=== PATIENT | female | born 1975 | race Caucasian/White ===

== ENCOUNTER → 2017-02-24 | Outpatient (REF) | payer OTHER ==
[~2017-02-24] MED LIST: BUPR150T3; CIPR-249 PO; PANT40TA2; RA A
== END ==
LOC: M WUC 16:19
PROVIDERS: ATTEND Physician Assistant
DX: Z11.3 Encounter for screening for infections with a predominantly sexual mode of transmission (principal)

== ENCOUNTER → 2017-04-23 | Outpatient (REF) | payer OTHER | LOC: M LAB REF 16:46 | PROVIDERS: ATTEND Physician Assistant | DX: N39.0 Urinary tract infection, site not specified (principal); N76.0 Acute vaginitis ==

== ENCOUNTER → 2017-05-15 | Outpatient (REF) | payer OTHER | LOC: M LAB REF 11:46 | PROVIDERS: ATTEND Physician Assistant Medical | DX: A02.0 Salmonella enteritis (principal) ==

== ENCOUNTER → 2017-05-16 | Outpatient (REF) | payer OTHER | LOC: M LAB REF 11:40 | PROVIDERS: ATTEND Physician Assistant Medical | DX: Z87.19 Personal history of other diseases of the digestive system (principal) ==

== ENCOUNTER → 2017-12-27 | Outpatient (REF) | payer SELFPAY, OTHER ==
[2017-12-27 14:26] LABS: APPEARANCE, URINE HAZY (CLEAR); BACTERIA, URINE AUTO NEGATIVE (NEGATIVE); BILIRUBIN, URINE AUTO NEGATIVE (NEGATIVE); BLOOD, URINE BLOOD NEGATIVE (NEGATIVE); COLOR, URINE YELLOW (YELLOW); GLUCOSE, URINE (UA) AUTO NEGATIVE (NEGATIVE); KETONE, URINE AUTO NEGATIVE (NEGATIVE); LEUKOCYTE ESTERASE, URINE AUTO NEGATIVE (NEGATIVE); MUCUS, URINE SMALL (NEGATIVE); NITRITE, URINE AUTO NEGATIVE (NEGATIVE); PROTEIN, URINE AUTO NEGATIVE (NEGATIVE); RBC, URINE AUTO 2 /HPF (0-3); SPECIFIC GRAVITY URINE AUTO 1.013 (1.002-1.035); SQUAMOUS EPITHELIAL CELL UR AU 4 /HPF (0-6); UROBILINOGEN, URINE AUTO 0.2 mg/dL (0.0-2.0); WBC, URINE AUTO 9 /HPF (0-3)
== END ==
LOC: M LAB REF 14:37
DX: N39.0 Urinary tract infection, site not specified (principal)

== ENCOUNTER → 2019-01-22 | Outpatient (REF) | payer BC ==
[~2019-01-22] MED LIST changes: -PANT40TA2; +PANT40TA3; -RA A; +[UNRECOGNIZED DRUG - CODE]
[2019-01-22 11:46] LABS: BASO # 0.1 10^3/uL (0.0-0.2); BASO % 0.6 % (0.0-1.0); EOS # 0.1 10^3/uL (0.0-0.50); EOS % 1.1 % (0.0-3.0); HEMATOCRIT 44.3 % (36.0-47.0); HEMOGLOBIN 14.5 g/dl (12.0-15.5); LYMPH # 3.5 10^3/uL (1.5-4.5); LYMPH % 37.1 % (24.0-44.0); MEAN CORPUSCULAR HEMOGLOBIN 30.7 pg (27.0-33.0); MEAN CORPUSCULAR HGB CONC 32.7 g/dl (32.0-36.5); MEAN CORPUSCULAR VOLUME 93.7 fl (80.0-96.0); MONO # 0.7 10^3/uL (0.0-0.8); MONO % 7.1 % (0.0-5.0); NEUTROPHILS % 53.8 % (36.0-66.0); PLATELET COUNT, AUTOMATED 282 10^3/uL (150-450); RED BLOOD COUNT 4.73 10^6/uL (4.00-5.40); WHITE BLOOD COUNT 9.4 10^3/uL (4.0-10.0)
[2019-01-22 12:01] LABS: HEMOGLOBIN A1c 5.8 %
[2019-01-22 13:04] LABS: ALBUMIN 3.4 GM/DL (3.2-5.2); ALT/SGPT 32 U/L (12-78); BILIRUBIN,TOTAL 0.4 MG/DL (0.2-1.0); BLOOD UREA NITROGEN 11 MG/DL (7-18); CALCIUM LEVEL 8.7 MG/DL (8.5-10.1); CARBON DIOXIDE LEVEL 29 MEQ/L (21-32); CHLORIDE LEVEL 109 MEQ/L (98-107); CHOLESTEROL LEVEL 162 MG/DL (<200); CREATININE FOR GFR 0.68 MG/DL (0.55-1.30); GLOMERULAR FILTRATION RATE > 60.0 (>58); GLUCOSE, FASTING 102 MG/DL (70-100); HDL CHOLESTEROL 45 MG/DL (>40); LDL CHOLESTEROL 99 MG/DL (<100); NON-HDL-C 117 MG/DL; POTASSIUM SERUM 4.2 MEQ/L (3.5-5.1); SODIUM LEVEL 145 MEQ/L (136-145); THYROXINE (T4) 7.9 UG/DL (4.5-12.0); TOTAL PROTEIN 6.9 GM/DL (6.4-8.2); TRIGLYCERIDES LEVEL 89 MG/DL (<150)
== END ==
LOC: M LABDRAW1 08:53
PROVIDERS: ATTEND Nurse Practitioner Adult Health
DX: Z00.00 Encounter for general adult medical examination without abnormal findings (principal)

== ENCOUNTER → 2019-03-23 | Outpatient (REF) | payer BC | LOC: M LAB REF 12:10 | PROVIDERS: ATTEND Surgery | DX: C44.722 Squamous cell carcinoma of skin of right lower limb, including hip (principal) ==

== ENCOUNTER → 2019-09-06 | Outpatient (CLI) | payer BC ==
[2019-09-08 10:31] LABS: RUBELLA IgG QUALITATIVE IMMUNE (IMMUNE)
[2019-09-09 00:06] LABS: HERPES ZOSTER, VARICELLA IgG 3449 index (Immune >165); HERPES ZOSTER, VARICELLA IgM <0.91 index (0.00-0.90); MUMPS VIRUS IgG ANTIBODY 25.8 AU/mL (Immune >10.9); RUBEOLA IgG ANTIBODY <13.5 AU/mL (Immune >16.4)
== END ==
LOC: M WUC 15:50
PROVIDERS: ATTEND Physician Assistant
DX: Z02.1 Encounter for pre-employment examination (principal)

== ENCOUNTER 2021-05-25 15:22 | Emergency (ER) | payer BC ==
[~2021-05-25] VITALS: Ht 162.6 cm; Wt 120.2 kg
[~2021-05-25 15:22] MED LIST changes: +BUPR150T12; -BUPR150T3; +PANT40TA29; -PANT40TA3
--- OUTSIDE RECORDS SUMMARY | 2021-05-25 15:36 | CCD ---
Author Author [facility] Organization [facility] Address Unknown Phone Unavailable Care Team Providers Care Cut Roll Machine Offbearer Name Role Phone Maring, Murphy PA Unavailable Unavailable Maring, Murphy PA Unavailable Unavailable Maring, Murphy PA Unavailable Unavailable Maring, Murphy PA Unavailable Unavailable Maring, Murphy PA Unavailable Unavailable Maring, Murphy PA Unavailable Unavailable Maring, Murphy PA Unavailable Unavailable Maring, Murphy PA Unavailable Unavailable Maring, Murphy PA Unavailable Unavailable Maring, Murphy PA Unavailable Unavailable Maring, Murphy PA Unavailable Unavailable Maring, Murphy PA Unavailable Unavailable Maring, Murphy PA Unavailable Unavailable Maring, Murphy PA Unavailable Unavailable Maring, Murphy PA Unavailable Unavailable Maring, Murphy PA Unavailable Unavailable Feola, T Alessia PA Unavailable Unavailable Feola, T Alessia PA Unavailable Unavailable Feola, T Alessia PA Unavailable Unavailable Feola, T Alessia PA Unavailable Unavailable Feola, T Alessia PA Unavailable Unavailable Feola, T Alessia PA Unavailable Unavailable Feola, T Alessia PA Unavailable Unavailable Feola, T Alessia PA Unavailable Unavailable Feola, T Alessia PA Unavailable Unavailable Feola, T Alessia PA Unavailable Unavailable Feola, T Alessia PA Unavailable Unavailable Feola, T Alessia PA Unavailable Unavailable Feola, T Alessia PA Unavailable Unavailable Feola, T Alessia PA Unavailable Unavailable Feola, T Alessia PA Unavailable Unavailable Feola, T Alessia PA Unavailable Unavailable Feola, T Alessia PA Unavailable Unavailable Feola, T Alessia PA Unavailable Unavailable Feola, T Alessia PA Unavailable Unavailable Feola, T Alessia PA Unavailable Unavailable Feola, T Alessia PA Unavailable Unavailable Feola, T Alessia PA Unavailable Unavailable Feola, T Alessia PA Unavailable Unavailable Feola, T Alessia PA Unavailable Unavailable Feola, T Alessia PA Unavailable Unavailable Feola, T Alessia PA Unavailable Unavailable Feola, T Alessia PA Unavailable Unavailable Feola, T Alessia PA Unavailable Unavailable Feola, T Alessia PA Unavailable Unavailable Feola, T Alessia PA Unavailable Unavailable Feola, T Alessia PA Unavailable Unavailable Feola, T Alessia PA Unavailable Unavailable Feola, T Alessia PA Unavailable Unavailable Feola, T Alessia PA Unavailable Unavailable Feola, T Alessia PA Unavailable Unavailable Feola, T Alessia PA Unavailable Unavailable Feola, T Alessia PA Unavailable Unavailable Feola, T Alessia PA Unavailable Unavailable Feola, T Alessia PA Unavailable Unavailable Feola, T Alessia PA Unavailable Unavailable Feola, T Alessia PA Unavailable Unavailable Jostin, Birdie Jigna ANP-BC Unavailable Unavailable Jostin, Birdie Jigna ANP-BC Unavailable Unavailable Jostin, Birdie Jigna ANP-BC Unavailable Unavailable Jostin, Birdie Jigna ANP-BC Unavailable Unavailable Jostin, Birdie Jigna ANP-BC Unavailable Unavailable Jostin, Birdie Jigna ANP-BC Unavailable Unavailable Jostin, Birdie Jigna ANP-BC Unavailable Unavailable Jostin, Birdie Jigna ANP-BC Unavailable Unavailable Jostin, Birdie Jigna ANP-BC Unavailable Unavailable Jostin, Birdie Jigna ANP-BC Unavailable Unavailable Jostin, Birdie Jigna ANP-BC Unavailable Unavailable Jostin, Birdie Jigna ANP-BC Unavailable Unavailable Jostin, Birdie Jigna ANP-BC Unavailable Unavailable Jostin, Birdie Jigna ANP-BC Unavailable Unavailable Jostin, Birdie Jigna ANP-BC Unavailable Unavailable Jostin, Birdie Jigna ANP-BC Unavailable Unavailable Jostin, Birdie Jigna ANP-BC Unavailable Unavailable Jostin, Birdie Jigna ANP-BC Unavailable Unavailable Jostin, Birdie Jigna ANP-BC Unavailable Unavailable Jostin, Birdie Jigna ANP-BC Unavailable Unavailable Jostin, Birdie Jigna ANP-BC Unavailable Unavailable Jostin, Birdie Jigna ANP-BC Unavailable Unavailable Jostin, Birdie Jigna ANP-BC Unavailable Unavailable Jostin, Birdie Jigna ANP-BC Unavailable Unavailable Jostin, Birdie Jigna ANP-BC Unavailable Unavailable Jostin, Birdie Jigna ANP-BC Unavailable Unavailable Jostin, Birdie Jigna ANP-BC Unavailable Unavailable Jostin, Birdie Jigna ANP-BC Unavailable Unavailable Jostin, Birdie Jigna ANP-BC Unavailable Unavailable Jostin, Birdie Jigna ANP-BC Unavailable Unavailable Jostin, Birdie Jigna ANP-BC Unavailable Unavailable Jostin, Birdie Jigna ANP-BC Unavailable Unavailable Jostin, Birdie Jigna ANP-BC Unavailable Unavailable Jostin, Birdie Jigna ANP-BC Unavailable Unavailable Jostin, Birdie Jigna ANP-BC Unavailable Unavailable Jostin, Birdie Jigna ANP-BC Unavailable Unavailable Jostin, Birdie Jigna ANP-BC Unavailable Unavailable Jostin, Birdie Jigna ANP-BC Unavailable Unavailable Jostin, Birdie Jigna ANP-BC Unavailable Unavailable Jostin, Birdie Jigna ANP-BC Unavailable Unavailable Jostin, Birdie Jigna ANP-BC Unavailable Unavailable Jostin, Birdie Jigna ANP-BC Unavailable Unavailable Jostin, Birdie Jigna ANP-BC Unavailable Unavailable Jostin, Birdie Jigna ANP-BC Unavailable Unavailable Jostin, Birdie Jigna ANP-BC Unavailable Unavailable Jostin, Birdie Jigna ANP-BC Unavailable Unavailable Jostin, Birdie Jigna ANP-BC Unavailable Unavailable Jostin, Birdie Jigna ANP-BC Unavailable Unavailable Jostin, Birdie Jigna ANP-BC Unavailable Unavailable Jostin, Birdie Jigna ANP-BC Unavailable Unavailable Jostin, Birdie Jigna ANP-BC Unavailable Unavailable Jostin, Birdie Jigna ANP-BC Unavailable Unavailable Jostin, Birdie Jigna ANP-BC Unavailable Unavailable Jostin, Birdie Jigna ANP-BC Unavailable Unavailable Jostin, Birdie Jigna ANP-BC Unavailable Unavailable Jostin, Birdie Jigna ANP-BC Unavailable Unavailable Jostin, Birdie Jigna ANP-BC Unavailable Unavailable Jostin, Birdie Jigna ANP-BC Unavailable Unavailable Jostin, Birdie Jigna ANP-BC Unavailable Unavailable Jostin, Birdie Jigna ANP-BC Unavailable Unavailable Jostin, Birdie Jigna ANP-BC Unavailable Unavailable Jostin, Birdie Wilsonn ANP-BC Unavailable Unavailable Jostin, Birdie Jigna ANP-BC Unavailable Unavailable Jostin, Birdie Jigna ANP-BC Unavailable Unavailable Jostin, Birdie Jigna ANP-BC Unavailable Unavailable Jostin, Birdie Jigna ANP-BC Unavailable Unavailable Jarrett, M Christopher PA-C Unavailable Unavailable Jarrett, M Christopher PA-C Unavailable Unavailable Jarrett, M Christopher PA-C Unavailable Unavailable Jarrett, M Christopher PA-C Unavailable Unavailable Jarrett, M Christopher PA-C Unavailable Unavailable Jarrett, M Christopher PA-C Unavailable Unavailable Jarrett, M Christopher PA-C Unavailable Unavailable Jarrett, M Christopher PA-C Unavailable Unavailable Jarrett, M Christopher PA-C Unavailable Unavailable Jarrett, M Christopher PA-C Unavailable Unavailable Jarrett, M Christopher PA-C Unavailable Unavailable Jarrett, M Christopher PA-C Unavailable Unavailable Jarrett, M Christopher PA-C Unavailable Unavailable Jarrett, M Christopher PA-C Unavailable Unavailable Jarrett, M Christopher PA-C Unavailable Unavailable Jarrett, M Christopher PA-C Unavailable Unavailable Jarrett, M Christopher PA-C Unavailable Unavailable Jarrett, M Christopher PA-C Unavailable Unavailable Jarrett, M Christopher PA-C Unavailable Unavailable Jarrett, M Christopher PA-C Unavailable Unavailable Jarrett, M Christopher PA-C Unavailable Unavailable Jarrett, M Christopher PA-C Unavailable Unavailable Jarrett, M Christopher PA-C Unavailable Unavailable Jarrett, M Christopher PA-C Unavailable Unavailable Jarrett, M Christopher PA-C Unavailable Unavailable Jarrett, M Christopher PA-C Unavailable Unavailable Re-disclosure Warning The records that you are about to access may contain information from federally-assisted alcohol or drug abuse programs. If such information is present, then the following federally mandated warning applies: This information has been disclosed to you from records protected by federal confidentiality rules (42 CFR part 2). The federal rules prohibit you from making any further disclosure of this information unless further disclosure is expressly permitted by the written consent of the person to whom it pertains or as otherwise permitted by 42 CFR part 2. A general authorization for the release of medical or other information is NOT sufficient for this purpose. The Federal rules restrict any use of the information to criminally investigate or prosecute any alcohol or drug abuse patient.The records that you are about to access may contain highly sensitive health information, the redisclosure of which is protected by Article 27-F of the [facility] Public Health law. If you continue you may have access to information: Regarding HIV / AIDS; Provided by facilities licensed or operated by the [facility] Office of Mental Health; or Provided by the [facility] Office for People With Developmental Disabilities. If such information is present, then the following [facility] mandated warning applies: This information has been disclosed to you from confidential records which are protected by state law. State law prohibits you from making any further disclosure of this information without the specific written consent of the person to whom it pertains, or as otherwise permitted by law. Any unauthorized further disclosure in violation of state law may result in a fine or detention sentence or both. A general authorization for the release of medical or other information is NOT sufficient authorization for further disc losure. Family History Family Member Name Family Member Gender Family Member Status Date o f Status Description Data Source(s) Unknown Male Problem [facility] ([facility]) () Unknown Unknown Problem [facility] ([facility]) father Encounters Encounter Providers Location Date Indications Data Source(s ) Outpatient Attender: Murphy ORONA 03/20/20 09:04:41 AM EDT - 03/20/2021 09:59:27 AM EDT [facility] ([facility] ) Outpatient Attender: Topher Jarrett PA-C 03/02/2021 02:14:46 PM EDT - 03/02/2021 03:05:09 PM EDT [facility] ([facility]) Outpatient Attender: Jigna HENDRICKSBC 01/2021 02:06:00 PM EDT - 10/11/2020 02:06:00 PM EDT [facility] Outpatient Attender: Alessia ORONA 021 05:15:02 PM EST - 09/04/2020 06:35:23 PM EST [facility] ([facility] ) Immunizations Vaccine Date Status Description Data Source(s) COVID-19 VACCINE Laverne 02/15/2021 12:00:00 AM EDT completed [employer] Vaccine Series Complete: YESThis Data wa s Submitted to [facility] Via [facility]. Medications Medication Brand Name Start Date Product Form Dose Route Admi nistrative Instructions Pharmacy Instructions Status Indications Reaction Description Data Source(s) pantoprazole 20 MG Delayed Release Oral Tablet Pantoprazole Sodium 10/11/2020 12:00:00 AM EDT ORAL active M EDENT ([facility]) Insurance Providers Payer name Policy type / Coverage type Policy ID Covered green party ID Covered green party's relationship to burr Policy Burr Plan Information [facility] [id number] SP [id number] [facility] [id number] SP [id number] SELF PAY ONLY [id number] SP [id number] [employer] emp [id number] Employee [id number] RV ID [facility] STAFFING emp [id number] Employee [id number] Private Pay Commercial [id number] Self [id number] Private Pay Commercial [id number] Self [id number] [facility] Commercial [id number] [facility] Commercial [id number] [facility] O [id number] S [id number] MEDICAID [id number] SP [id number] PMA MANAGEMENT [facility] [id number] SP [id number] PMA MANAGEMENT [facility] [id number] SP [id number] SELF PAY UNAVAILABLE SP UNAVAILA BLE PMA MANAGEMENT [facility] UNAVAILABLE SP UNAVAILABLE HMO BLUE [id number] SP [id number] HMO BLUE [id number] SP [id number] MEDICAID [id number] SP [id number] PMA MANAGEMENT [facility] P [id number] S [id number] PMA MANAGEMENT [facility] [id number] SP [id number] PMA MANAGEMENT [facility] [id number] SP [id number] [employer] [id number] SP [id number] [employer] [place] PPO 302/307 [id number] SP [id number] [facility] BS [id number] 18 [id number] SELF PAY ONLY [id number] SP [id number] [facility] [id number] SP [id number] [employer] OTHER 1 [id number] SP [id number] Problems, Conditions, and Diagnoses Code Display Name Description Problem Type Effective Dates Data Source(s) D48.5 Neoplasm of uncertain behavior of skin N eoplasm of uncertain behavior of skin Problem 10/11/2020 12:00:00 AM EDT MEDENT ([facility]) R03.0 Elevated blood-pressure reading without diagnosis of hypertension Elevated blood-pressure reading without diagnosis of hypertension Problem 10/11/2020 12:00:00 AM EDT MEDENT ([facility]) Z79.899 Taking medication Taking medication Problem 10/11/2020 12:00:00 AM EDT MED[facility] ([facility]) E78.41 Hyperlipidemia Hyperlipidemia Problem 10/11/2020 12:00: 00 AM EDT MEDENT ([facility]) F41.9 Anxiety state Anxiety state Problem 10/11/2020 12:00:00 AM EDT MEDENT ([facility]) K21.9 Gastroesophageal reflux disease Gastroesophageal reflu x disease Problem 10/11/2020 12:00:00 AM EDT MEDENT ([facility]) Surgeries/Procedures Procedure Description Date Indications Data Source(s) Brief Emotional/Behav Assessment W/ Scoring Doc Per Standard Inst 10/11/2020 12:00:00 AM EDT MEDENT ([facility]) Admin Patient Focused Health Risk Assessment Instrument 10/11/2020 12:00:00 AM EDT MEDENT ([facility]) Results No Information Social History No Information Vital Signs ID Date Data Source UNK Name Value Range Interpretation Code Description Data Source(s) Systolic blood pressure 128 mm[Hg] 128 mm[Hg] M EDENT ([facility]) Diastolic blood pressure 80 mm[Hg] 80 mm[Hg] [facility] ([facility]) Heart rate 100 /min 100 /min [facility] ([facility]) Body temperature 98.3 [degF] 98.3 [degF] [facility] ([facility]) Respiratory rate 18 /min 18 /min [facility] ( [facility]) Oxygen saturation in Arterial blood by Pulse oximetry 97 % 97 % [facility] ([facility]) Body weight 263.00 [lb_av] 263.00 [lb_av] MEDEN T ([facility]) Body weight 119.297 kg 119.297 kg [facility] ([facility]) Body height 66 [in_i] 66 [in_i] [facility] ([facility]) 5'6" Body mass index (BMI) [Ratio] 42.4 kg/m2 42.4 k g/m2 [facility] ([facility]) Body surface area Derived from formula 2.25 m2 2.25 m2 [facility] ([facility])
[2021-05-25 15:47] VITALS: BP 179/106
[2021-05-25 16:34] LABS: BASO % 0.6 % (0.0-1.0); EOS % 0.6 % (0.0-3.0); HEMOGLOBIN 16.1 g/dl (12.0-15.5); LYMPH # 2.3 10^3/uL (1.5-5.0); LYMPH % 31.8 % (24.0-44.0); MEAN CORPUSCULAR HGB CONC 32.9 g/dl (32.0-36.5); MEAN CORPUSCULAR VOLUME 94.4 fl (80.0-96.0); MONO # 0.6 10^3/uL (0.0-0.8); NEUTROPHILS # 4.2 10^3/uL (1.5-8.5); NEUTROPHILS % 58.9 % (36.0-66.0); PLATELET COUNT, AUTOMATED 264 10^3/uL (150-450); RED BLOOD COUNT 5.19 10^6/uL (4.00-5.40); WHITE BLOOD COUNT 7.1 10^3/uL (4.0-10.0)
[2021-05-25 17:02] LABS: BLOOD UREA NITROGEN 9 MG/DL (7-18); CALCIUM LEVEL 9.1 MG/DL (8.5-10.1); CARBON DIOXIDE LEVEL 23 MEQ/L (21-32); CHLORIDE LEVEL 111 MEQ/L (98-107); CREATININE FOR GFR 0.63 MG/DL (0.55-1.30); GLOMERULAR FILTRATION RATE > 60.0 (>58); GLUCOSE, FASTING 100 MG/DL (70-100); POTASSIUM SERUM 4.8 MEQ/L (3.5-5.1); SODIUM LEVEL 139 MEQ/L (136-145)
--- OUTSIDE RECORDS SUMMARY | 2021-05-25 20:05 | CCD ---
Author Author [facility] Organization [facility] Address Unknown Phone Unavailable Care Team Providers Care Wearing Apparel Shaker Name Role Phone Maring, Murphy PA Unavailable [...] Unavailable Jostin, Birdie Jigna ANP-BC Unavailable Unavailable Jositn, Birdie Jigna ANP-BC Unavailable Unavailable Jostin, Birdie [...] is protected by Article 27-F of the [facility] Public Health law. If you continue you may have access to information: Regarding HIV / AIDS; Provided by facilities licensed or operated by the [facility] Office of Mental Health; or Provided by the [facility] Office for People With Developmental Disabilities. If such information is present, then the following [facility] mandated warning applies: This information has [...] law may result in a fine or long term sentence or both. A general authorization for the release of medical or other information is NOT sufficient authorization for further disc losure. Family History Family Member Name Family Member Gender Family Member Status Date o f Status Description Data Source(s) Unknown Male Problem [facility]ENT ([facility]) () Unknown Unknown Problem [facility] ([facility]) father Encounters Encounter Providers Location Date Indications Data Source(s ) Outpatient Attender: Murphy ORONA 03/20/20 09:04:41 AM EDT - 03/20/2021 09:59:27 AM EDT [facility] ([facility] ) Outpatient Attender: Topher Jarrett PA-C 03/02/2021 02:14:46 PM EDT - 03/02/2021 03:05:09 PM EDT [facility] ([facility]) Outpatient Attender: Jigna HENDRICKSBC 01/2021 02:06:00 PM EDT - 10/11/2020 02:06:00 PM EDT [facility] Outpatient Attender: Alessia ORONA 021 05:15:02 PM EST - 09/04/2020 06:35:23 PM EST [facility] ([facility] ) Immunizations Vaccine Date Status Description Data Source(s) COVID-19 VACCINE Laverne 02/15/2021 12:00:00 AM EDT completed [employer] Vaccine Series Complete: YESThis Data wa s Submitted to [facility] Via [employer]. Medications Medication Brand Name Start Date Product Form Dose Route Admi nistrative Instructions Pharmacy Instructions Status Indications Reaction Description Data Source(s) pantoprazole 20 MG Delayed Release Oral Tablet Pantoprazole Sodium 10/11/2020 12:00:00 AM EDT ORAL active M EDENT ([facility]) Insurance Providers Payer name Policy type / Coverage type Policy ID Covered constitution party ID Covered constitution party's relationship to burr Policy Burr Plan Information [facility] [id number] SP [id number] [facility] [id number] SP [id number] SELF PAY ONLY [id number] SP [id number] [employer] emp [id number] Employee [id number] [employer] ON LICENSE OF [facility] STAFFING emp [id number] Employee [id number] Private Pay Commercial [id number] Self [id number] Private Pay Commercial [id number] Self [id number] [facility] Commercial [id number] Self [id number] [facility] Commercial [id number] Self [id number] [facility] O [id number] S [id number] MEDICAID [id number] SP [id number] PMA MANAGEMENT [facility] [id number] SP [id number] PMA MANAGEMENT [facility] [id number] SP [id number] SELF PAY UNAVAILABLE SP UNAVAILA BLE PMA MANAGEMENT [facility] UNAVAILABLE SP UNAVAILABLE HMO BLUE [id number] SP [id number] HMO BLUE [id number] SP [id number] MEDICAID [id number] SP [id number] PMA MANAGEMENT [facility] P [id number] S [id number] PMA MANAGEMENT [facility] [id number] SP [id number] PMA MANAGEMENT [facility] [id number] SP [id number] [employer] [id number] SP [id number] [employer] [place] [employer] PPO 302/307 [id number] SP [id number] [employer] [facility] BS [id number] SELF PAY ONLY [id number] SP [id number] [facility] [id number] SP [id number] [employer] OTHER 1 [id number] SP [id number] Problems, Conditions, and Diagnoses Code Display Name Description Problem Type Effective Dates Data Source(s) D48.5 Neoplasm of uncertain behavior of skin N eoplasm of uncertain behavior of skin Problem 10/11/2020 12:00:00 AM EDT MED[facility] ([facility]) R03.0 Elevated blood-pressure reading without diagnosis of hypertension Elevated blood-pressure reading without diagnosis of hypertension Problem 10/11/2020 12:00:00 AM EDT MEDENT ([facility]) Z79.899 Taking medication Taking medication Problem 10/11/2020 12:00:00 AM EDT MEDENT ([facility]) E78.41 Hyperlipidemia Hyperlipidemia Problem 10/11/2020 12:00: 00 AM EDT MED[facility] ([facility]) F41.9 Anxiety state Anxiety state Problem 10/11/2020 12:00:00 AM EDT MEDENT ([facility]) K21.9 Gastroesophageal reflux disease Gastroesophageal reflu x disease Problem 10/11/2020 12:00:00 AM EDT MEDENT ([facility]) Surgeries/Procedures Procedure Description Date Indications Data Source(s) Brief Emotional/Behav Assessment W/ Scoring Doc Per Standard Inst 10/11/2020 12:00:00 AM EDT MEDENT ([facility]) Admin Patient Focused Health Risk Assessment Instrument 10/11/2020 12:00:00 AM EDT MEDENT ([facility]) Results No Information Social History No Information Vital Signs ID Date Data Source UNK Name Value Range Interpretation Code Description Data Source(s) Systolic blood pressure 128 mm[Hg] 128 mm[Hg] M EDENT ([facility]) Diastolic blood pressure 80 mm[Hg] 80 mm[Hg] [facility] ([facility]) Heart rate 100 /min 100 /min [facility] ([facility]) Body temperature 98.3 [degF] 98.3 [degF] [facility] ([facility]) Respiratory rate 18 /min 18 /min [facility] ( [facility]) Oxygen saturation in Arterial blood by Pulse oximetry 97 % 97 % [facility] ([facility]) Body weight 263.00 [lb_av] 263.00 [lb_av] MEDEN T ([facility]) Body weight 119.297 kg 119.297 kg [facility] ([facility]) Body height 66 [in_i] 66 [in_i] [facility] ([facility]) 5'6" Body mass index (BMI) [Ratio] 42.4 kg/m2 42.4 k g/m2 [facility] ([facility]) Body surface area Derived from formula 2.25 m2 2.25 m2 [facility] ([facility])
--- NOTE | 2021-05-26 08:10 | ECGEPIP ---
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
== END 2021-05-25 19:27 | disposition left against medical advice (07) ==
LOC: M ED 15:22
DX: Z53.29 Procedure and treatment not carried out because of patient's decision for other reasons (principal)

== ENCOUNTER → 2022-06-21 | Outpatient (CLI) | payer SELFPAY ==
[2022-06-21 14:41] LABS: ALBUMIN 3.6 G/DL (3.2-5.2); ALKALINE PHOSPHATASE 93 U/L (46-116); ALT/SGPT 24 U/L (7.0-40); AST/SGOT 18 U/L (<34); BILIRUBIN,TOTAL 0.3 MG/DL (0.3-1.2); BLOOD UREA NITROGEN 14 MG/DL (9-23); CALCIUM LEVEL 9.5 MG/DL (8.5-10.1); CARBON DIOXIDE LEVEL 31 MMOL/L (20-31); CHLORIDE LEVEL 107 MMOL/L (98-107); CREATININE FOR GFR 0.74 MG/DL (0.55-1.30); GLOMERULAR FILTRATION RATE > 60.0 (>58); GLUCOSE, FASTING 93 MG/DL (60-100); POTASSIUM SERUM 4.8 MMOL/L (3.5-5.1); SODIUM LEVEL 141 MMOL/L (136-145); TOTAL PROTEIN 7.3 G/DL (5.7-8.2)
== END ==
LOC: M LAB 13:17
PROVIDERS: ATTEND Nurse Practitioner Family
DX: I10 Essential (primary) hypertension (principal)

== ENCOUNTER → 2022-10-08 | Outpatient (REF) | payer SELFPAY ==
[2022-10-08 19:51] LABS: HEMATOCRIT 47.2 % (36.0-47.0); HEMOGLOBIN 15.4 g/dl (12.0-15.5); MEAN CORPUSCULAR HEMOGLOBIN 30.3 pg (27.0-33.0); MEAN CORPUSCULAR HGB CONC 32.6 g/dl (32.0-36.5); MEAN CORPUSCULAR VOLUME 92.7 fl (80.0-96.0); PLATELET COUNT, AUTOMATED 324 10^3/uL (150-450); RED BLOOD COUNT 5.09 10^6/uL (4.00-5.40); WHITE BLOOD COUNT 10.6 10^3/uL (4.0-10.0)
[2022-10-08 20:18] LABS: ALBUMIN 3.8 G/DL (3.2-5.2); ALKALINE PHOSPHATASE 94 U/L (46-116); ALT/SGPT 33 U/L (7.0-40); AST/SGOT < 8 U/L (<34); BILIRUBIN,TOTAL 0.5 MG/DL (0.3-1.2); BLOOD UREA NITROGEN 10 MG/DL (9-23); CALCIUM LEVEL 8.9 MG/DL (8.5-10.1); CARBON DIOXIDE LEVEL 29 MMOL/L (20-31); CHLORIDE LEVEL 104 MMOL/L (98-107); CREATININE FOR GFR 0.67 MG/DL (0.55-1.30); GLOMERULAR FILTRATION RATE > 60.0 (>58); GLUCOSE, FASTING 85 MG/DL (60-100); POTASSIUM SERUM 4.1 MMOL/L (3.5-5.1); SODIUM LEVEL 141 MMOL/L (136-145); TOTAL PROTEIN 7.2 G/DL (5.7-8.2)
== END ==
LOC: M SFHCCLAY 14:08
PROVIDERS: ATTEND Nurse Practitioner Family
DX: R19.7 Diarrhea, unspecified (principal)

== ENCOUNTER → 2023-10-06 | Outpatient (REF) | payer OTHER ==
[2023-10-06 21:42] LABS: APPEARANCE, URINE CLOUDY (CLEAR); BACTERIA, URINE AUTO 2+ (NEGATIVE); BILIRUBIN, URINE AUTO NEGATIVE (NEGATIVE); BLOOD, URINE BLOOD 1+ (NEGATIVE); COLOR, URINE YELLOW (YELLOW); GLUCOSE, URINE (UA) AUTO NEGATIVE (NEGATIVE); KETONE, URINE AUTO NEGATIVE (NEGATIVE); LEUKOCYTE ESTERASE, URINE AUTO 3+ (NEGATIVE); NITRITE, URINE AUTO POSITIVE (NEGATIVE); PROTEIN, URINE AUTO 2+ mg/dL (NEGATIVE); RBC, URINE AUTO 29 /HPF (0-3); SPECIFIC GRAVITY URINE AUTO 1.016 (1.002-1.035); SQUAMOUS EPITHELIAL CELL UR AU 11 /HPF (0-6); UROBILINOGEN, URINE AUTO 0.2 mg/dL (0.0-2.0); WBC, URINE AUTO TNTC /HPF (0-3)
[2023-10-06 23:36] LABS: Trichomonas vaginalis (AMP) NOT DETECTED (NEGATIVE)
[2023-10-06 23:58] LABS: GC DNA AMPLIFICATION NEGATIVE (NEGATIVE)
== END ==
LOC: M LAB REF 21:19
PROVIDERS: ATTEND Physician Assistant Medical
DX: N39.0 Urinary tract infection, site not specified (principal)

== ENCOUNTER → 2023-11-12 | Outpatient (REF) | payer OTHER | LOC: M SFHCCLAY 13:54 | PROVIDERS: ATTEND Physician Assistant | DX: L08.9 Local infection of the skin and subcutaneous tissue, unspecified (principal) ==

== ENCOUNTER → 2024-01-05 | Outpatient (CLI) | payer OTHER ==
[2024-01-05 15:32] LABS: BASO # 0.1 10^3/uL (0.0-0.2); BASO % 0.7 % (0.0-1.0); EOS # 0.1 10^3/uL (0.0-0.5); EOS % 0.7 % (0.0-3.0); HEMATOCRIT 47.5 % (36.0-47.0); LYMPH # 4.2 10^3/uL (1.5-5.0); LYMPH % 37.2 % (24.0-44.0); MEAN CORPUSCULAR HEMOGLOBIN 31.4 pg (27.0-33.0); MEAN CORPUSCULAR HGB CONC 33.7 g/dl (32.0-36.5); MEAN CORPUSCULAR VOLUME 93.1 fl (80.0-96.0); MONO # 0.7 10^3/uL (0.0-0.8); MONO % 6.3 % (2.0-8.0); NEUTROPHILS # 6.1 10^3/uL (1.5-8.5); NEUTROPHILS % 54.7 % (36.0-66.0); PLATELET COUNT, AUTOMATED 312 10^3/uL (150-450); WHITE BLOOD COUNT 11.2 10^3/uL (4.0-10.0)
[2024-01-05 16:01] LABS: ALBUMIN 3.9 G/DL (3.2-5.2); ALKALINE PHOSPHATASE 94 U/L (46-116); ALT/SGPT 31 U/L (7.0-40); AST/SGOT 18 U/L (<34); BILIRUBIN,TOTAL 0.6 MG/DL (0.3-1.2); BLOOD UREA NITROGEN 9 MG/DL (9-23); CALCIUM LEVEL 9.6 MG/DL (8.5-10.1); CARBON DIOXIDE LEVEL 31 MMOL/L (20-31); CHLORIDE LEVEL 105 MMOL/L (98-107); CHOLESTEROL LEVEL 209 MG/DL (<200); CHOLESTEROL RISK RATIO 4.86 (<5); CREATININE FOR GFR 0.64 MG/DL (0.55-1.30); GLOMERULAR FILTRATION RATE > 60.0 (>51); GLUCOSE, FASTING 98 MG/DL (60-100); LDL CHOLESTEROL 135.8 MG/DL (<100); MAGNESIUM LEVEL 1.7 MG/DL (1.8-2.4); POTASSIUM SERUM 4.1 MMOL/L (3.5-5.1); SODIUM LEVEL 141 MMOL/L (136-145); TOTAL PROTEIN 7.4 G/DL (5.7-8.2); TRIGLYCERIDES LEVEL 151 MG/DL (<150)
[2024-01-05 16:02] LABS: FOLLICLE STIMULATING HORMONE 44.1 mIU/ML; LUTEINIZING HORMONE 19.4 mIU/ML; THYROID STIMULATING HORMONE 2.282 uIU/ML (0.55-4.78)
[2024-01-05 16:03] LABS: FREE T4 1.03 NG/DL (0.89-1.76); TESTOSTERONE 27 NG/DL (14-76)
[2024-01-05 18:59] LABS: HEMOGLOBIN A1c 5.3 % (4.0-6.0)
== END ==
LOC: M LAB 13:26
PROVIDERS: ATTEND Nurse Practitioner Family
DX: M50.30 Other cervical disc degeneration, unspecified cervical region (principal); R53.83 Other fatigue; T14.8XXD Other injury of unspecified body region, subsequent encounter; I10 Essential (primary) hypertension; K21.9 Gastro-esophageal reflux disease without esophagitis; F41.9 Anxiety disorder, unspecified; Z78.0 Asymptomatic menopausal state

== ENCOUNTER → 2024-09-23 | Outpatient (CLI) | payer SELFPAY | LOC: M RAD 08:24 | PROVIDERS: ATTEND Nurse Practitioner Family | DX: R10.11 Right upper quadrant pain (principal) ==